=== PATIENT | male | born 1995 | race Caucasian/White ===

== ENCOUNTER → 2018-09-26 | Outpatient (CLI) | payer OTHER ==
--- NOTE | 2018-09-26 08:16 | US ---
EXAMINATION TYPE: US abdomen complete DATE OF EXAM: 09/26/2018 COMPARISON: NONE CLINICAL HISTORY: R10.9 Unspecified abdominal pain. Nausea, loss of appetite Morbidly obese pt, difficult exam EXAM MEASUREMENTS: Liver Length: 21.3 cm Gallbladder Wall: 0.2 cm CBD: 0.4 cm Spleen: 13.2 cm Right Kidney: 10.8 x 5.4 x 4.8 cm Left Kidney: 12.4 x 6.4 x 6.4 cm Pancreas: Body wnl, head and tail obscured by overlying bowel gas Liver: Enlarged, difficult to penetrate Gallbladder: Possible small amount of sludge Evidence for sonographic Wang's sign: No CBD: wnl Spleen: Enlarged Right Kidney: wnl, lower pole gassed out Left Kidney: Difficult to visualize Upper IVC: wnl Abd Aorta: wnl The liver is homogenous. The intrahepatic portion of the IVC and proximal abdominal aorta are within normal limits. There is no evidence of cholelithiasis. Common bile duct is unremarkable. The visu alized portions of the pancreas are homogenous. The spleen is unremarkable. Kidneys are symmetric a nd free of hydronephrosis. No renal lesions are seen. IMPRESSION: 1. Hepatic steatosis with the hepatomegaly. 2. Mild splenomegaly. 3. Small amount of gallbladder sludge suspected.
== END | disposition home or self-care (01) ==
LOC: RADUSWWP 07:30
PROVIDERS: ATTEND Family Medicine
DX: K76.0 Fatty (change of) liver, not elsewhere classified (principal); R16.2 Hepatomegaly with splenomegaly, not elsewhere classified
CPT/HCPCS: 76700